=== PATIENT | female | born 1970 | race Caucasian/White ===

== ENCOUNTER 2017-03-23 09:40 | Emergency (ER) | payer OTHER ==
--- NOTE | ~2017-03-23 | CR210 ---
[facility] A Service of [facility] RADIOLOGY TEXT RESULTS PATIENT: CONSTANCE US LOCATION: SED : 74 UNIT #: [id number] AGE: [address]: Lynda Molina SEX: F ORDER DR: [id number] [address] [id number] MR#: [id number] Acc #: [id number] NAME: CONSTANCE US : 1970 SEX: F STUDY DATE/TIME: 03/23/2017 10:28 UNIT: SED ROOM: STUDY DESCRIPTION: CR Ribs Uni 2 View W PA Ch Lt Attending Physician: Lynda Molina P.A.-C. Ordering Physician: Lynda Molina P.A.-C. MEDICAL IMAGING REPORT This report is preliminary unless electronic signature is present. EXAM Chest with left rib series 03/23/2017 10:28 hours CLINICAL HISTORY Left-sided pain following injury on March 09, 2017. Pain with inspiration. COMPARISON Chest CT 09/05/2013 and chest film 09/05/2013 FINDINGS Chest film demonstrates slightly low lung volumes. The cardiac, mediastinal and hilar contours are within normal limits. There is bandlike density in the left mid lung which is new. Atelectasis is favored. There is no pleural effusion or pneumothorax. One AP and 1 oblique view of the left ribs demonstrate no rib lesion or rib fracture. IMPRESSION 1. There is plate-like atelectasis in the left mid lung. There is no pleural effusion or pneumothorax. 2. Rib films demonstrate no fracture or rib lesion. There is no pleural effusion or pneumothorax. Dictated by... Quita Love M.D. THIS IS AN ELECTRONICALLY VERIFIED REPORT Quita Love M.D. at 03/23/2017 2:21 PM [facility]/jo[facility] A Service of [facility] RADIOLOGY TEXT RESULTS PATIENT: CONSTANCE US LOCATION: SED : 74 UNIT #: [id number] AGE: [address]: Lynda Molina SEX: F ORDER DR: TD: 03/23/2017 14:00 JOB #: [id number] MEDICAL IMAGING REPORT Page 1 of 1
[~2017-03-23 09:40] MED LIST: ACIPHEX20 MG PO; ALBUTEROL MININEB NEB; ALBUTEROL17 GM INH; ATIVAN PO; BENZONATATE PO; BYSTOLIC5 MG; CLARITIN D PO; IRON1 TA1 PO; LISINOPRIL20 MG PO; MULTIVITAMIN W-1 TAB PO; NORVASC2.5 MG PO; OMEPRAZOLE PO; PREDNISONE PO
[2017-03-23] MEDS ORDERED: COMBIVENT RESPIM4 GM INH (09:57)
[2017-03-23] MEDS ORDERED: ARNUITY ELLIP100 MCG (09:57)
[2017-03-23] MEDS ORDERED: IRON PILL (09:58)
[2017-03-23] MEDS ORDERED: GUAIFENESIN AC473 ML (09:58)
[2017-03-23] MEDS ORDERED: AMOXICILLIN (09:58)
[2017-03-23 11:09] LABS: BASOPHIL# 0.1 X10e3 (0-0.3); BASOPHIL% 0.7 % (0-2.5); DIFF IND NO; EOSINOPHIL# 0.1 X10e3 (0-0.7); EOSINOPHIL% 0.4 % (0.0-7.0); HEMOGLOBIN 10.3 gm/dL (12.0-16.0); LYMPHOCYTE# 0.7 X10e3 (1.0-3.5); LYMPHOCYTE% 5.2 % (17.0-45.0); MEAN CELL VOLUME 84.1 FL (83-96); MEAN CORPUSCULAR HEMOGLOBIN 26.3 PG (28-34); MEAN CORPUSCULAR HGB CONC 31.3 g/dL (30-36); MEAN PLATELET VOLUME 7.5 FL (6.5-11.5); MONOCYTE# 0.6 X10e3 (0-1.0); MONOCYTE% 4.3 % (3.0-12.0); NEUTROPHIL# 11.7 X10e3 (1.5-7.1); NEUTROPHIL% 89.4 % (40-75); PLATELET COUNT 492 X10e3 (140-420); RED BLOOD COUNT 3.93 X10e (3.90-5.30); RED CELL DISTRIBUTION WIDTH 20.2 % (11.0-15.5)
[2017-03-23 11:25] LABS: BUN/CREATININE RATIO 25.71; CALCIUM SERUM 8.6 mg/dL (8.4-10.2); CREATININE SERUM 0.7 mg/dL (0.6-1.4); GLOM FILT RATE Estimated 105.4 mL/min (>60); POTASSIUM 3.4 mmol/L (3.5-5.1)
== END 2017-03-23 12:49 | disposition home or self-care (01) ==
LOC: SED 09:40
PROVIDERS: Physician Assistant
DX: J18.9 Pneumonia, unspecified organism (principal); I10 Essential (primary) hypertension; J45.909 Unspecified asthma, uncomplicated; D64.9 Anemia, unspecified; F17.210 Nicotine dependence, cigarettes, uncomplicated; Z79.899 Other long term (current) drug therapy
CPT/HCPCS: 36415; 71100; 80048; 85025; 94640; 96374; 96375; 99284; J0696; J1100; J1885